=== PATIENT | male | born 2005 | race Caucasian/White ===

== ENCOUNTER 2024-06-22 19:20 | Emergency (ER) | payer OTHER, SELFPAY ==
[2024-06-22 19:24] VITALS: BP 132/83; PULSE 87; RESP 17; TEMP 36.4; O2SAT 99; BMI 20.7
--- NOTE | 2024-06-22 19:57 | DI.RAD.S_ITS ---
PROCEDURE: XR LUMBAR SPINE 2-3V INDICATIONS: fall 6 feet from ladder TECHNIQUE: 3 views of the lumbar spine were acquired. COMPARISON: None. FINDINGS: Bones: 5 [id number] vertebrae are present. Straightening of the normal lumbar lordosis. No vertebral body compression fractures. No suspicious bony lesions. Soft tissues: Overlying bowel gas pattern is normal. No suspicious soft tissue calcifications. IMPRESSION: No acute fractures are identified. No significant degenerative changes. Dictated by: Bebeto Cunha M.D. on 06/22/2024 at 20:22 Approved by: Bebeto Cunha M.D. on 06/22/2024 at 20:23
[2024-06-22] MEDS: ACETAMINOPHEN 325 MG TABLET 650 MG PO (20:25)
[2024-06-22] MEDS: LIDOCAINE 5% PATCH 1 EACH TOP (20:26)
[2024-06-22] MEDS: IBUPROFEN 400 MG TABLET PO (20:26)
--- NOTE | 2024-06-22 21:37 | ED.FALL ---
HPI - Fall General Chief Complaint: Fall Stated Complaint: Fall, back px Time Seen by Provider: 06/22/24 21:37 Source: patient Mode of arrival: Ambulatory History of Present Illness HPI Narrative: Patient is a male who presents with back pain after falling six to seven feet off a ladder onto his back. The patient reports slipping on loose gravel, which caused the fall. He immediately got up after the fall but experienced significant wind knocked out of him. He denies hitting his head or losing consciousness and did not exhibit any confusion or altered behavior post-fall. The patient has been given pain medication, which is providing some relief. Related Data Allergies Allergy/AdvReac Type Severity Reaction Status Date / Time No Known Drug Allergies Allergy Verified 06/22/24 19:29 Review of Systems Review of Systems ROS Unobtainable: All systems reviewed & are unremarkable except as noted in HPI and below Exam Narrative Exam Narrative: General: Well appearing, well nourished, in no distress. Skin: Good turgor, no rash, unusual bruising or prominent lesions. Patient has a abrasion overlying the lower back on the left and right side over the paraspinal muscles no ongoing bleeding, Head: Normocephalic, atraumatic. HEENT: Conjunctiva clear, EOM intact, PERRL, Mucous membranes moist. Neck: Supple, normal ROM. Heart: Regular rate and rhythm, no murmur or gallop or rubs. Lungs: Clear to auscultation. No rales rhonchi or wheezes. Abdomen: Soft and nontender. Bowel sounds normal. No mass or hernia. Back: Spine normal without deformity or tenderness, no CVA tenderness. see skin changes as noted above, no significant bruising no midline tenderness to palpation over the lumbar spine Extremities: No deformities, edema. Peripheral pulses intact. Neurologic: CN 2-12 normal. Normal sensation and motor exam. Psychiatric: Oriented X3. Normal mood and affect. Initial Vital Signs Initial Vital Signs: Vital Signs Temperature 97.6 F 06/22/24 19:24 Pulse Rate 87 06/22/24 19:24 Respiratory Rate 17 06/22/24 19:24 Blood Pressure 132/83 06/22/24 19:24 Pulse Oximetry 99 06/22/24 19:24 Oxygen Delivery Method Room Air 06/22/24 19:24 Course Orders Ordered: Discontinued Medications Acetaminophen (Acetaminophen 325 Mg Tablet) 650 mg PO NOW ONE Stop: 06/22/24 19:59 Last Admin: 06/22/24 20:25 Dose: 650 mg Documented By: MADHU Ibuprofen (Ibuprofen 400 Mg Tablet) 400 mg PO NOW ONE Stop: 06/22/24 20:00 Last Admin: 06/22/24 20:26 Dose: 400 mg Documented By: MADHU Lidocaine (Remove Lidocaine Patch) 1 each TOP NOW ONE Stop: 06/22/24 20:00 Last Admin: 06/22/24 21:38 Dose: Not Given Documented By: MADHU Lidocaine (Lidocaine 5% Patch) 1 each TOP NOW ONE Stop: 06/22/24 20:24 Last Admin: 06/22/24 20:26 Dose: 1 each Documented By: MADHU Vital Signs Vital signs: Vital Signs - 8 hr 06/22/24 19:24 Temperature 97.6 F Pulse Rate 87 Respiratory Rate 17 Blood Pressure 132/83 Pulse Oximetry 99 Oxygen Delivery Method Room Air MDM - Fall MDM Narrative Medical decision making narrative: 18-year-old male who fell from a ladder approximately 6 ft today on his back resulting in some pain, no neurological deficits ambulatory after the event. No signs of trauma to the head neck no loss of consciousness INITIAL EVALUATION AND PLAN: - Obtain X-rays to evaluate for fracture - Assess patient's ability to ambulate. - Continue pain management. - Complete L&I ([employer] and [employer]) documentation. - Differential diagnosis includes but is not limited to: lumbar fracture, skin abrasion, wound, ecchymosis, musculoskeletal pain - patient is [place] head and C-spine negative will not need CT scans of head or C-spine however they were considered. Patient states that he is up-to-date on tetanus will not be administered at this time, on exam patient has no neurological deficits, we discussed wound care of the area on his back, x-ray reviewed this shows no signs of fracture. Patient counseled on pain management and discharged from the emergency department Discharge Plan Departure Patient Disposition: Home Clinical Impression: Fall Activity Restrictions/Additional Instructions: please rest until you are feeling better with pain in your back, please use Tylenol, ibuprofen, hot packs lidocaine patches in order to help with the pain. Your lumbar spine films were negative if you began to have worsening symptoms or pain in your lower legs or neurological deficits please return to the ED. Referrals: Miscellaneous,Doctor, [Primary Care Provider] - Stand Alone Forms: Patient Portal/API/Survey
[2024-06-22 21:59] VITALS: BP 136/77; PULSE 79; RESP 16; O2SAT 98
== END 2024-06-22 21:58 | disposition home or self-care (01) ==
PROVIDERS: Emergency Provider Emergency Medicine
DX: S39.92XA Unspecified injury of lower back, initial encounter (principal); W11.XXXA Fall on and from ladder, initial encounter
CPT/HCPCS: 72100; 99283; 99284